=== PATIENT | male | born 1995 | race African-American/Black ===

== ENCOUNTER 2018-12-24 14:43 | Emergency (ER) | payer MEDICAID ==
[2018-12-24 14:47] VITALS: BP 103/68; TEMP 97.6
[2018-12-24] MEDS ORDERED: MIRALAX PA17 GM/Dose PO (15:24)
[2018-12-24 15:25] VITALS: PULSE 103
[2018-12-24] MEDS ORDERED: TRIAMCINOLONE A15 G3 TP (15:25)
== END 2018-12-24 15:32 | disposition home or self-care (01) ==
LOC: COL.ER 14:43 → EDBD 14:44 → COL.ER 15:32
DX: K59.00 Constipation, unspecified (principal)

== ENCOUNTER 2019-04-15 11:18 | Emergency (ER) | payer MEDICAID ==
[~2019-04-15] VITALS: Ht 157.5 cm; Wt 75.6 kg
[~2019-04-15 11:18] MED LIST: MIRALAX PA17 GM/Dose PO; TRIAMCINOLONE A15 G3 TP
[2019-04-15 11:36] VITALS: BP 133/71; TEMP 97.7
[2019-04-15] MEDS ORDERED: COLACE 100100 MG/CAP PO (12:06)
[2019-04-15 14:18] VITALS: PULSE 82
== END 2019-04-15 14:18 | disposition home or self-care (01) ==
LOC: COL.ER 11:18
DX: K59.00 Constipation, unspecified (principal); Q90.9 Down syndrome, unspecified

== ENCOUNTER 2020-04-21 12:40 | Emergency (ER) | payer MEDICAID ==
[~2020-04-21] VITALS: Ht 157.5 cm; Wt 70.9 kg
[~2020-04-21 12:40] MED LIST changes: +COLACE 100100 MG/CAP PO
[2020-04-21 12:43] VITALS: BP 132/89; TEMP 97.6
[2020-04-21] MEDS ORDERED: AMOXICILLI400 MG/51 PO (13:03)
[2020-04-21] MEDS ORDERED: NORCOELIX PO (13:03)
[2020-04-21 13:14] VITALS: PULSE 90
== END 2020-04-21 13:17 | disposition home or self-care (01) ==
LOC: COL.ER 12:40
DX: R68.84 Jaw pain (principal); Q90.9 Down syndrome, unspecified

== ENCOUNTER 2021-04-21 19:50 | Emergency (ER) | payer MEDICAID ==
[~2021-04-21] VITALS: Ht 160 cm; Wt 72.7 kg
[~2021-04-21 19:50] MED LIST changes: +AMOXICILLI400 MG/51 PO; +NORCOELIX PO
[2021-04-21 21:27] LABS: BASO % 0.4 % (0.0-2.0); EOS # 0.2 K/mm3 (0.0-0.7); EOS % 2.1 % (0.0-4.0); GRAN # 4.2 K/mm3 (1.4-6.5); GRAN % 58.5 % (42.2-75.2); HEMATOCRIT 45.3 % (42.0-52.0); HEMOGLOBIN 15.1 g/dl (13.5-18.0); LYMPH # 1.8 K/mm3 (1.2-3.4); LYMPH % 25.3 % (20.0-51.0); MEAN CELL VOLUME 92 fl (80.0-100.0); MEAN CORPUSCULAR HEMOGLOBIN 31 pg (27-31); MEAN CORPUSCULAR HGB CONC 33 g/dl (33.0-37.0); MEAN PLATELET VOLUME 10.5 fl (7.4-10.4); MONO % 13.3 % (1.7-9.3); PLATELET COUNT 218 K/mm3 (130-400); RED BLOOD COUNT 4.92 M/mm3 (4.20-5.60); REDCELL DISTRIBUTION WIDTH-CV 13.1 % (11.5-14.5)
[2021-04-21 21:48] LABS: ALANINE AMINOTRANSFERASE 18 U/L (0-55); ALBUMIN 3.8 gm/dL (3.5-5.0); ALKALINE PHOSPHATASE 93 U/L (40-150); ANION GAP 12 mmol/L (7-16); AST,SGOT 24 U/L (5-34); BILIRUBIN,TOTAL 0.6 mg/dL (0.2-1.2); BLOOD UREA NITROGEN 13 mg/dL (9-21); C-REACTIVE PROTEIN 2.99 mg/dL (0.00-0.50); CALCIUM 9.1 mg/dL (8.4-10.2); CARBON DIOXIDE 25 mmol/L (22-29); CHLORIDE 104 mmol/L (98-107); CREATININE, serum 1.04 mg/dL (0.72-1.25); GLUCOSE 112 mg/dL (70-99); LIPASE < 10 U/L (8-78); SODIUM 141 mmol/L (136-145); TOTAL PROTEIN 8.5 gm/dL (6.2-8.1)
[2021-04-21 23:02] LABS: COLLECTION METHOD CLEAN CATCH
[2021-04-21 23:26] LABS: MUCOUS Present (NOT PRESENT); SQUAMOUS EPITHELIAL None Seen /hpf (0-10); URINE BACTERIA None Seen /hpf (NONE SEEN); URINE RBC 0-2 /hpf (0-2)
[2021-04-21 23:36] LABS: PH 6 (5-8); URINE APPEARANCE Clear (CLEAR/HAZY); URINE BILIRUBIN Negative (NEGATIVE); URINE BLOOD Negative (NEGATIVE); URINE COLOR Yellow (YELLOW); URINE GLUCOSE Negative (NEGATIVE); URINE KETONE 1+ (NEGATIVE); URINE LEUKOCYTE ESTERASE Negative (NEGATIVE); URINE NITRATE Negative (NEGATIVE); URINE PROTEIN(semi-quant) 1+ (NEGATIVE)
[2021-04-21] MEDS ORDERED: LEVAQUIN 750MG750 M1 PO ×2 (23:47)
[2021-04-21] MEDS ORDERED: ZOFRAN ODT4 MG PO (23:47)
[2021-04-21] MEDS ORDERED: LEVASOLN PO (23:50)
[2021-04-22] VITALS: BP 148/79; PULSE 80; TEMP 98.2
== END 2021-04-22 | disposition home or self-care (01) ==
LOC: COL.ER 19:50
PROVIDERS: Emergency Medicine
DX: J18.9 Pneumonia, unspecified organism (principal); N30.90 Cystitis, unspecified without hematuria; R79.82 Elevated C-reactive protein (CRP); Q90.9 Down syndrome, unspecified; Z20.822 Contact with and (suspected) exposure to COVID-19
CPT/HCPCS: J2405; J7030; Q9967